=== PATIENT | male | born 2000 | race Caucasian/White ===

== ENCOUNTER 2019-09-03 16:27 | Emergency (ER) | payer OTHER, MEDICAID, SELFPAY ==
[2019-09-03 16:29] VITALS: BP 123/68; PULSE 95; RESP 16; TEMP 36.6; O2SAT 99; BMI 19.8
--- NOTE | 2019-09-03 17:42 | ED.VISSUMM ---
- ER Visit Summary Date of Service: 09/03/19 Chief Complaint: Nosebleed History of Present Illness: The patient is a 19 M with intermittent nosebleeds on the right side throughout the day. Controlled with direct pressure. Patient thinks it might be from dry air and chemicals at work. Denies trauma. Denies blood thinners. Denies any trouble breathing or other associated symptoms. Physical Examination: Bleeding has stopped. There is some dried blood in his right nostril. No active bleeding. Oropharynx is clear. Skin is normal. Exam unremarkable otherwise. Test Results: None indicated Emergency Department Course and Treatment: I discussed multiple treatment options with the patient. I advised that we can place a balloon or other device or gel, but these would not guarantee that his bleeding would not recur. Patient would like to try Afrin and direct pressure as needed. He will stay hydrated and follow-up with ENT. Treatment Plan: As above Disposition: Discharged Impression: Right epistaxis, resolved This note was generated with [employer] dictation software. It may contain incorrect words, spelling, and punctuation that were not noted in review of the chart prior to signing ED Disposition - Plan for ED Patient: Referrals: Nicanor Agustin MD [Primary Care Provider] -
--- NOTE | 2019-09-03 17:45 | ED.DEP ---
ED Disposition - Plan for ED Patient: Instructions: Nosebleed Referrals: Raciel Tena MD [STAFF PHYSICIAN] -
[2019-09-03] MEDS: Oxymetazoline 0.05% 1 SPRAY SPRAY.BTL 2 SPRAY NASAL (18:46)
[2019-09-03 18:47] VITALS: PULSE 95; RESP 16; O2SAT 100
== END 2019-09-03 18:49 | disposition home or self-care (01) ==
LOC: ED 18:20
PROVIDERS: Emergency Provider Emergency Medicine; Family Provider Pediatrics; PCP Pediatrics
DX: R04.0 Epistaxis (principal); F90.9 Attention-deficit hyperactivity disorder, unspecified type; Z72.0 Tobacco use
CPT/HCPCS: 99282

== ENCOUNTER 2020-05-24 03:50 | Emergency (ER) | payer OTHER, MEDICAID, SELFPAY ==
[2020-02-13 15:12] VITALS: BMI 19.8
[2020-05-24 03:52] VITALS: BP 134/89; PULSE 89; RESP 18; TEMP 36.9; O2SAT 98; BMI 19.5
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
[2020-05-24 04:22] VITALS: RESP 16
== END 2020-05-24 04:23 | disposition home or self-care (01) ==
LOC: ED 04:13
PROVIDERS: Emergency Provider Emergency Medicine; PCP Pediatrics
DX: F41.9 Anxiety disorder, unspecified (principal); F90.9 Attention-deficit hyperactivity disorder, unspecified type; Z79.899 Other long term (current) drug therapy
CPT/HCPCS: 99284

== ENCOUNTER 2020-08-28 12:37 | Emergency (ER) | payer BC, MEDICAID, SELFPAY ==
[2020-08-28 12:38] VITALS: BP 127/71; PULSE 105; RESP 17; TEMP 37.1; O2SAT 99; BMI 18.6
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
== END 2020-08-28 14:23 | disposition home or self-care (01) ==
LOC: ED 13:23
PROVIDERS: Emergency Provider Emergency Medicine; PCP Pediatrics
DX: F07.81 Postconcussional syndrome (principal)
CPT/HCPCS: 70450; 99282

== ENCOUNTER 2021-03-24 09:33 | Emergency (ER) | payer BC, MEDICAID, SELFPAY ==
[2021-03-24 09:35] VITALS: BP 149/98; PULSE 87; RESP 19; TEMP 37.2; O2SAT 99; BMI 19.9
--- NOTE | 2021-03-24 10:01 | EX.ED.DYSGE1 ---
HPI History of Present Illness Chief Complaint: Flank Pain Informant: patient Onset/Context/Timing Onset: Today Context: Sudden Onset Timing: Continuous Quality: Sharp Location: Right flank and back Current Severity: Severe Maximum Severity: Severe Worsened by: Nothing Relieved by: Nothing Narrative Narrative: Patient presents with right flank pain that began suddenly today while he was at work. Patient states the pain is in his low back and right flank area. Patient describes the pain as sharp. Patient states nothing makes it better nothing makes it worse. Patient states she has never had any pain like this in the past. Patient denies any dysuria or hematuria. Patient denies any fevers or chills. Patient denies any nausea or vomiting. Patient denies any family history of kidney stones. [facility] Medical History (Updated 03/24/21 @ 13:[address] Raciel Castro DO) ADHD (attention deficit hyperactivity disorder) Home Medications dextroamphetamine-amphetamine 5 mg tablet 30 mg PO DAILY 02/13/20 [History Last Taken Unknown] Allergy/AdvReac Type Severity Reaction Status Date / Time No Known Allergies Allergy Verified 03/24/21 09:37 Surgical History History of eye surgery Social History Smoking Status: Never smoker alcohol intake: never ROS ROS ED Constitutional Constitutional ED: Denies chills or fever(s) Eyes Eyes: Denies blurry vision or change in vision ENT ENT ED: Denies rhinorrhea or sore throat Cardiovascular Cardiovascular: Denies chest pain or palpitations Respiratory/Chest Respiratory/Chest: Denies cough or dyspnea Gastrointestinal Gastrointestinal: Reports abdominal pain; Denies nausea or vomiting Genitourinary Genitourinary ED: Denies dysuria or hematuria Musculoskeletal Musculoskeletal: Reports back pain; Denies neck pain Integumentary Denies abscess or rash Neurologic Neurologic: Denies headache(s) or weakness Allergic/Immunologic Allergic/Immunologic ED: Denies mouth swelling or urticaria EXAM Physical Exam Const Vital Signs: 03/24/21 09:35 03/24/21 10:07 03/24/21 12:21 Temperature 98.9 F Temperature Source Temporal Pulse Rate 87 93 Respiratory Rate 19 H 12 Respiratory Effort Normal Non-Labored Respiratory Pattern Normal Blood Pressure 149/98 H 129/76 H Blood Pressure Mean 115 93 Pulse Ox 99 100 Oxygen Delivery Method Room Air Room Air Positive well nourished and well developed General Appearance ED: well developed HEENT Reports moist mucous membranes Neck supple and no JVD Resp normal respiratory effort and clear to auscultation bilaterally Cardio regular rate, regular rhythm and no murmurs GI normal to inspection, nondistended, normoactive bowel sounds and non-tender Palpation: soft; Negative for guarding or rebound tenderness present Back/Spine General Back: CVA tenderness right Extremity normal to inspection General Extremety ED: Negative for edema or tenderness General Extremity: Negative for edema Neuro oriented x3, CN's II-XII intact bilaterally and no sensory deficits noted Sensorium / Orientation: alert Motor Exam: strength 5/5 throughout Psych mental status grossly normal Skin no rashes or lesions noted MDM MDM MDM Narrative Medical decision making narrative: Patient was given IV fluids. Patient was ordered Toradol and Zofran. Patient was feeling better prior to administration of the medications and they were not given. CT scan of the abdomen pelvis shows a stone in the bladder. This is consistent with a recently passed stone. There are also 2 calculi in the right kidney. CBC and basic metabolic profile within normal limits. Urinalysis shows occult blood of 250 with 5-10 red blood cells. There is no evidence of urinary tract infection. Patient was advised of his findings. Patient was instructed to drink plenty of fluids. Patient was instructed to follow-up with his primary care physician. Patient understood and was agreeable with the plan. All questions were answered. Lab Data Attestation: I reviewed the patient's lab results. Labs: Laboratory Results - last 24 hr 03/24/21 03/24/21 03/24/21 09:54 09:54 11:30 WBC 6.1 RBC 5.40 Hgb 15.5 Hct 45.4 MCV 84.1 MCH 28.7 MCHC 34.1 RDW Std Deviation 36.5 RDW Coeff of [place] 12.2 Plt Count 241 MPV 9.1 Immature Gran % (Auto) 0.300 Neut % (Auto) 52.1 Lymph % (Auto) 34.2 [place] % (Auto) 10.4 H Eos % (Auto) 2.3 Baso % (Auto) 0.7 Absolute Neuts (auto) 3.2 Absolute Lymphs (auto) 2.10 Nucleated RBC % 0 Sodium 141 Potassium 3.9 Chloride 107 Carbon Dioxide 31.0 Anion Gap 3 L BUN 12 Creatinine 0.97 Estim Creat Clear Calc 92.52 Est GFR (MDRD) Af Amer 125 Est GFR (MDRD) Non-Af 103 BUN/Creatinine Ratio 12.4 Glucose 97 Calcium 9.3 Urine Color Yellow Urine Clarity Clear Urine pH 8.0 Ur Specific [place] 1.015 Urine Protein 30 H Urine Glucose (UA) Normal Urine Ketones Negative Urine Occult Blood 250 H Urine Nitrite Negative Urine Bilirubin Negative Urine Urobilinogen Normal Ur Leukocyte Esterase Negative Urine RBC 5-10 SEEN Urine WBC 0 SEEN Ur Squamous Epith Cells 0-5 SEEN Amorphous Sediment 1+ Urine Bacteria 3+ Urine Mucus 1+ Radiography Diagnostic Testing: Radiology Impression Abdomen/Pelvis CT 03/24/21 11:11 IMPRESSION: 2 mm calculus at the base of the bladder most likely represent previously passed calculus. Nonobstructive right intrarenal calculi. Electronically Signed: Leroy Marquez MD at 12:05 EDT , Service support , Discharge Plan Triage Chief Complaint: Flank Pain ED Provider: Raciel Castro Dx/Rx/DC Orders Clinical Impression: Right distal ureteral calculus Instructions: ED Kidney Stone, Passed Prescriptions: No Action dextroamphetamine-amphetamine [Adderall] 5 mg tablet 30 mg PO DAILY RF: 0 Primary Care Provider: Nicanor Agustin Referrals: Nicanor Agustin MD [Primary Care Provider] - 1-2 Weeks Disposition Disposition: Home, self care
[2021-03-24 10:16] LABS: Absolute Neutrophil Count 3.2 X10^3/uL (2.0-7.7); Basophil# 0.04 X10^3/uL; Basophil% 0.7 % (0-1); Eosinophil# 0.14 X10^3/uL; Eosinophils% 2.3 % (0-5); Hematocrit 45.4 % (40-54); Hemoglobin 15.5 g/dL (13.0-16.5); Lymphocyte % 34.2 % (19-41); Mean Corp Hgb Conc 34.1 g/dL (32-36); Mean Corpuscular Hgb 28.7 pg (27.0-32.0); Mean Corpuscular Volume 84.1 fL (80-94); Mean Platelet Vol. 9.1 fl (6.2-12.0); Monocyte# 0.64 X10^3/uL; Monocyte% 10.4 % (0-10); NRBC Flagged by Analyzer 0 % (0-5); Neutrophil % 52.1 % (47-70); Platelet Count 241 K/mm3 (150-450); RBC Distribution Width CV 12.2 % (11.6-14.6); RBC Distribution Width SD 36.5 fl (35.1-43.9); White Blood Count 6.1 K/mm3 (4.4-11.0)
[2021-03-24 10:25] LABS: Anion Gap 3 (5-15); BUN 12 mg/dL (7-18); BUN/Creat Ratio 12.4 RATIO (10-20); Calcium,Total 9.3 mg/dL (8.5-10.1); Chloride 107 mmol/L (98-107); Creatinine, Serum 0.97 mg/dL (0.70-1.30); EST Glomerular Filtration Rate 103 mL/min (>60); Est Glom Filt Rate - Afr Amer 125 mL/min (>60); Estimated Creatinine Clearance 92.52 ml/min; Glucose 97 mg/dL (74-106); Potassium 3.9 mmol/L (3.5-5.1); Sodium Level 141 mmol/L (136-145)
--- NOTE | 2021-03-24 11:11 | CT_ITS ---
STUDY: CT ABDOMEN AND PELVIS WITHOUT CONTRAST REASON FOR EXAM: Male, 20 years old. Kidney Stone RADIATION DOSAGE (If Supplied By Facility): CTDIvol = ( 5.16 ) mGy, DLP = ( 247.17 ) mGycm TECHNIQUE: Transaxial images were obtained from the dome of the diaphragm to the symphysis pubis without oral contrast, and without intravenous contrast. Sagittal and coronal images were reconstructed. Individualized dose optimization techniques were used for this CT. COMPARISON: None. FINDINGS: The visualized lung bases are unremarkable. The visualized portions of the heart are within normal limits. Normal liver. Normal gallbladder and extrahepatic biliary system. Normal spleen. Normal pancreas. Normal bilateral adrenal glands. There is a 3 mm nonobstructive S in the upper pole calyx of the right kidney. 2.5 mm calculus in the midpole calyx of the right kidney. Normal left kidney. There is a small hiatal hernia. Normal small intestine. Normal colon. The appendix is visualized and appears normal. Normal abdominal aorta. Normal inferior vena cava. Normal retroperitoneum. There is a 2 mm conquest at the base of the bladder most likely representing a recently passed calculus. Normal abdominal wall. Normal osseous structures. CT/Abdomen/Pelvis without Cont IMPRESSION: 2 mm calculus at the base of the bladder most likely represent previously passed calculus. Nonobstructive right intrarenal calculi. Electronically Signed: Leroy Marquez MD at 12:05 EDT , Service support ,
[2021-03-24] MEDS: 0.9% Normal Saline 1,000 ML 250 ML IV (11:28)
[2021-03-24 11:40] LABS: White Blood Cells 0 SEEN /hpf (0-5)
[2021-03-24 11:42] LABS: Color, Urine Yellow (Yellow); Glucose, Dipstick Normal (Normal); Ketone-Dipstick Negative (Negative); Leukocyte Esterase-Dipstick Negative /ul (Negative); Nitrite-Dipstick Negative (Negative); Occult Blood-Urine 250 /ul (Negative); Protein-Dipstick 30 mg/dl (Negative); Specific Gravity, Urine 1.015 (1.002-1.030); Urine Bilirubin Dipstick Negative (Negative); Urine Clarity Clear (Clear); Urine Urobilinogen Normal (Normal)
[2021-03-24 11:49] LABS: Amorphous Sediment 1+; Bacteria 3+ /hpf (None Seen); Mucous, Urine 1+ /hpf (<or=2+); Red Blood Cells-Urine 5-10 SEEN /hpf (0-5); Squamous Epithelial Cells - UA 0-5 SEEN /hpf (0-5)
[2021-03-24 12:21] VITALS: BP 129/76; PULSE 93; RESP 12; O2SAT 100
[2021-03-24 13:46] VITALS: PULSE 91; RESP 16; O2SAT 97
== END 2021-03-24 13:49 | disposition home or self-care (01) ==
PROVIDERS: Emergency Provider Emergency Medicine; PCP Pediatrics
DX: N20.2 Calculus of kidney with calculus of ureter (principal); F90.9 Attention-deficit hyperactivity disorder, unspecified type; Z79.899 Other long term (current) drug therapy
CPT/HCPCS: 74176; 80048; 81001; 85025; 96360; 96361; 99283; J7030; J2405